=== PATIENT | male | born 1960 | race American Indian/Alaskan Native ===

== ENCOUNTER 2018-09-08 11:00 | Outpatient (CLI) | payer BC | END 2018-09-08 11:01 | disposition home or self-care (01) | LOC: SLR 11:00 | PROVIDERS: ATTEND Otolaryngology | DX: G47.30 Sleep apnea, unspecified (principal); E78.00 Pure hypercholesterolemia, unspecified; Z72.89 Other problems related to lifestyle | CPT/HCPCS: G0399 ==

== ENCOUNTER 2018-09-13 11:00 | Outpatient (CLI) | payer BC | END 2018-09-13 11:01 | disposition home or self-care (01) | LOC: SLR 11:00 | PROVIDERS: ATTEND Otolaryngology | DX: G47.33 Obstructive sleep apnea (adult) (pediatric) (principal); R40.0 Somnolence; R06.83 Snoring; E78.00 Pure hypercholesterolemia, unspecified | CPT/HCPCS: 95811 ==